=== PATIENT | female | born 1975 | race Caucasian/White ===

== ENCOUNTER → 2020-11-30 02:19 | Outpatient (CLI) | payer BC, SELFPAY ==
[2020-12-01 14:24] LABS: SARS-CoV-2 RNA PCR Negative
== END ==
PROVIDERS: Visit Provider Obstetrics & Gynecology
DX: Z01.812 Encounter for preprocedural laboratory examination (principal); Z20.822 Contact with and (suspected) exposure to COVID-19
CPT/HCPCS: C9803; U0003; U0005

== ENCOUNTER 2020-11-30 09:47 | Outpatient (CLI) | payer BC, SELFPAY ==
[2020-11-30 10:15] LABS: Basophils Absolute Auto 0.1 K/mm3 (0.0-0.1); Basophils Percent Auto 0.9 % (0.2-1.2); Eosinophils Absolute Auto 0.1 K/mm3 (0-0.3); Eosinophils Percent Auto 1.8 % (0-4.4); Hematocrit 44.2 % (37.0-47.0); Hemoglobin 14.4 g/dL (12.0-15.0); Immature Granulocyte Absolute 0.04 K/mm3 (0.00-0.031); Immature Granulocyte Percent A 0.5 % (0-0.5); Lymphocytes Percent Auto 17.7 % (18.3-44.2); Mean Corpuscular HGB Conc 32.6 g/dl (32-36); Mean Corpuscular Hemoglobin 28.9 pg (26-34); Mean Corpuscular Volume 88.8 fl (80-100); Mean Platelet Volume 9.2 fl (7.4-10.4); Monocytes Absolute Auto 0.5 K/mm3 (0.1-0.6); Monocytes Percent Auto 6.5 % (2.6-8.5); Neutrophils Absolute Auto 5.7 K/mm3 (1.3-6.7); Neutrophils Percent Auto 72.6 % (45.5-73.1); Platelet Count Result 361 k/mm3 (150-375); Red Blood Count 4.98 M/mm3 (4.2-5.4); Red Cell Distribution Width 13.3 % (11.5-14.5); White Blood Count 7.9 K/mm3 (4.5-10.0)
--- NOTE | 2020-11-30 11:30 | ECG_ITS ---
Measurements Intervals [place] Rate: 68 P: 19 CO: 123 QRS: -4 QRSD: 75 T: 12 QT: 372 QTc: 396 Interpretive Statements SINUS RHYTHM WITH SINUS ARRHYTHMIA LOW QRS VOLTAGE IN PRECORDIAL LEADS VOLTAGE CRITERIA FOR LVH BORDERLINE ECG Electronically Signed On 11-30-2020 10:21:54 CDT by Preet Easton D.O.
== END 2020-11-30 09:48 | disposition home or self-care (01) ==
PROVIDERS: PCP Internal Medicine; Visit Provider Obstetrics & Gynecology
DX: Z01.818 Encounter for other preprocedural examination (principal); N85.2 Hypertrophy of uterus; I10 Essential (primary) hypertension
CPT/HCPCS: 36415; 85025; 86850; 86900; 86901; 93005

== ENCOUNTER 2020-12-01 08:31 | Outpatient (CLI) | payer BC, SELFPAY ==
--- NOTE | ~2020-12-01 | MM_ITS ---
EXAMINATION: MM screening radha BI w junie HISTORY: Screening mammogram TECHNIQUE: Craniocaudal and mediolateral oblique 3-D tomosynthesis images were obtained and synthetic 2-D images were generated. CAD analysis was submitted and interpreted. COMPARISON: 09/14/2017 limited left breast ultrasound examination 09/14/2017 right screening and left diagnostic mammogram BREAST PARENCHYMAL COMPOSITION: There are scattered areas of fibroglandular density. FINDINGS: Left breast: 3.6 mm mass in the mid and lower inner left breast (craniocaudal Tomosynthesis image 31/80) 3.6 x 5.5 mm mass lower central left breast (craniocaudal Tomosynthesis image 30/80). Diagnostic left mammogram and left breast ultrasound examination are recommended. Right breast: There is no evidence of suspicious mass, calcification, or architectural distortion to suggest malignancy in either breast. There has been no suspicious interval change. IMPRESSION: 1. Left breast masses 2. Diagnostic left mammogram and left breast ultrasound examination are recommended BI-RADS Category 0: Incomplete: Needs additional imaging evaluation. Reviewed, dictated and finalized at location A. IMPRESSION: 1. Left breast masses 2. Diagnostic left mammogram and left breast ultrasound examination are recomme nded BI-RADS Category 0: Incomplete: Needs additional imaging evaluation.
== END 2020-12-01 08:32 | disposition home or self-care (01) ==
LOC: ANHIMG 08:34
PROVIDERS: PCP Internal Medicine; Visit Provider Obstetrics & Gynecology
DX: Z12.31 Encounter for screening mammogram for malignant neoplasm of breast (principal); R92.8 Other abnormal and inconclusive findings on diagnostic imaging of breast
CPT/HCPCS: 77063; 77067

== ENCOUNTER 2020-12-03 02:10 | Day surgery (SDC) | payer BC, SELFPAY ==
[2020-11-25 13:55] VITALS: BMI 40.4
--- NOTE | 2020-12-01 06:54 | PM.IMHP ---
H&P: HPI History of Present Illness Date/Time: 12/01/20 06:54 45-year-old 3 para 2 admitted for robotic total vaginal hysterectomy and bilateral salpingectomies. It appears to be fibroid uterus that is retroverted. She has had pain, discomfort and heavy bleeding. She had considered tubal ligation ablation however because of for pain she opted for definitive therapy. Risks and benefits reviewed including but not exclusive of , aspiration pneumonia, bleeding, transfusion, perforation injury to bowel, bladder, ureters, or other internal organs with need for open laparotomy. She had all questions answered. She received the ACOG handout entitled hysterectomy as well as the de Abel handout. She had all questions answered in asked to proceed Chief Complaint: pelvic pain and bleeding Review of Systems Review of Systems: All systems reviewed & are unremarkable except as noted in HPI and below [facility] Social History Social History Smoking status: Never smoker Alcohol intake: current Drinks per week: 2 Substance use: never Additional living arrangements comments: [facility]USB AND CHILDREN Spiritual care concerns: No Meds Home Medications and Allergies Home Medications Medication Instructions Recorded Confirmed Type lisinopril 20 mg PO QAM 11/25/20 11/25/20 History Allergies Allergy/AdvReac Type Severity Reaction Status Date / Time Penicillins Allergy Mild Hives Unverified 11/25/20 13:51 Exam Const: General: no acute distress Eyes: General: appearance normal, both eyes and all related structures Neck: Neck: supple and no JVD Thyroid: thyroid normal Resp: Effort & Inspection: normal respiratory effort Auscultation: clear to auscultation bilaterally Cardio: Rate: regular rate Rhythm: regular rhythm GI: Inspection: non-distended GI Palp: Yes Soft to palpation, No Tenderness to palpation present (GI) and No Guarding due to palpation present (GI) Auscultation: normal bowel sounds : External Female Exam: normal external appearance Speculum Exam - Vagina: normal appearance of the vagina Speculum Exam - Cervix: normal appearance of the cervix Bimanual exam- vagina & uterus: enlarged, fixed and Uterine tenderness Bimanual Exam- Adnexa, other: normal adnexae Skin: General skin exam: no rashes or lesions noted Extrem: General: normal to inspection and no edema Psych: Mental Status: mental status grossly normal Affect: normal affect Assessment and Plan Additional Plan impression: Enlarged uterus with pelvic pain and heavy bleeding Plan: Robotic total vaginal hysterectomy and bilateral salpingectomies
[2020-12-03] VITALS (11 sets, daily range): BP systolic 106–142; BP diastolic 57–101; PULSE 50–81; RESP 12–20; TEMP 35.8–37.6; O2SAT 98–100
[2020-12-03] MEDS: LACTATED RINGERS 1,000 ML 30 ML IV CONT (06:45)
[2020-12-03] MEDS: ACETAMINOPHEN 500 MG TABLET 1000 MG PO (06:50)
[2020-12-03] MEDS: KETOROLAC 15 MG/ML VIAL (*BKC) IV PUSH (06:50)
--- NOTE | 2020-12-03 06:54 | WPDHPUPDATE1 ---
History and Physical Update Update Date/Time: 12/03/20 06:54 History and Physical has been reviewed, including an updated exam of the patient. There are NO changes in the patient's condition. Risks, benefits, and alternatives have been discussed and questions answered. Patient agrees to proceed with procedure.
--- NOTE | 2020-12-03 07:03 | WPDANESEPPF ---
Anes - Initial Pre Proc Eval Procedure: Operation Date: 12/03/20 07:30 Proposed Procedures p Robotic Assisted Total Vaginal Hysterectomy, with Bilateral Salpingectomy - Bharat Hurtado MD Date/Time: 12/03/20 07:03 Surgeon: Bharat Hurtado MD Pre Op Diagnosis: enlarged uterus, pelvic pain, fibroid heavy bleedi Patient Data Age: 45 Gender: F Height: 1.63 m Weight: 107 kg Allergies Allergy/AdvReac Type Severity Reaction Status Date / Time Penicillins Allergy Mild Hives Unverified 12/03/20 06:42 Home Medications Medication Instructions Recorded Confirmed Type lisinopril 20 mg PO QAM 11/25/20 11/25/20 History hydrocodone-acetaminophen 1 tablet PO Q4H PRN #30 tablet 12/03/20 Rx Patient hx anesthesia problems: none Family hx anesthesia problems: none PMF Past Medical History Medical History (Updated 12/03/20 @ 07:04 by Bharat Moeller MD) HTN (hypertension) Morbid obesity Social History Social History Smoking status: Never smoker Alcohol intake: current Drinks per week: 2 Substance use: never Living arrangements: with family Additional living arrangements comments: [facility]USB AND CHILDREN Spiritual care concerns: No Anes - Eval Final PreProcedure Day of Procedure 12/03/20 07:03 Patient weight: morbidly obese Heart: regular rate and rhythm Lungs: clear to auscultation Airway: Mallampati scale class II Neurological: alert and oriented Last oral intake: >/= 8 hours ASA classification: III Emergent: no Anesthetic plan: proceed Anesthesia type and monitoring: general ETT and standard monitoring Informed Consent: The patient's anesthetic plan and its attendant risks and benefits were discussed with the patient/family/POA. Questions were solicited and answers provided to the satisfaction of the patient/family/POA.
[2020-12-03] MEDS: ceFAZolin 2 GM/D5W 50 ML 2 GM/50 ML BAG IVPB (07:15)
--- NOTE | 2020-12-03 08:38 | W.PM.PROC2 ---
Procedure Note - Detailed Date of Procedure 12/03/20 Pre-op Diagnosis enlarged uterus, pelvic pain, fibroid heavy bleedi Post-op Diagnosis same Procedure Performed Robotic total vaginal hysterectomy and bilateral salpingectomies Surgeon Bharat Hurtado MD Anesthesia general Indications This is a patient with excessive heavy bleeding with an enlarged uterus pelvic pain Findings And enlarged uterus. Normal-appearing tubes and ovaries bilaterally. Description of Procedure Patient was prepped draped in the normal sterile fashion placed in dorsal lithotomy position. Under excellent general endotracheal anesthesia weighted speculum was placed in the posterior fornix of vagina. Anterior lip of the cervix was grasped with a single-tooth tenaculum and the uterus sounded to 9cm. Serial dilatation with fragmented dilators performed followed by passage of the 8. MARIA GUADALUPE and the 3. 0.5 cold cup. A 16 Citizen [place] catheter was placed in the bladder which drained clear fluid. The weighted speculum was removed as was the single-tooth tenaculum. The gloves were changed. A supraumbilical incision made the Veress needle passed in the abdomen. The abdomen filled with CO2 gas [id number]. The 8mm trocar advanced in the abdomen. The downside visualizing the injury seen. Patient placed in Trendelenburg and right and left lateral quadrant incisions made. The 8mm trocars advanced under direct visualization assuring no injury. A right upper quadrant incision made and the 10mm trocar advanced under direct visualization assuring no injury. Robot was docked Attention was turned to the marriage and family counselor. The left round ligament was grasped, burned, cut. A bladder flap was formed by sharply dissecting the peritoneum and reflecting the bladder caudally away from the cervix and uterus to the opposite round ligament was clamped, burned, cut. The ovaries appeared within normal limits and the tubes were sharply dissected using monopolar cautery and the left attached at the origin of the uterus bilaterally. The left utero-ovarian ligament was skeletonized to conserve left ovary. This was clamped, burned, cut and brought to the level of previously cut round ligament conserving the right ovary, the right utero-ovarian ligament was clamped, burned, cut and brought to the level of previous cut round ligament. Cardinal and broad ligaments on the left were serially skeletonized clamped, burned, cut and brought down the level of the uterine vessels on the left. The uterine vessels were large and tortuous. These were individually clamped, burned, cut. In like fashion the cardinal broad ligaments on the right were serially clamped, burned, cut and brought down the lateral edge of the cervix and uterus. The uterine vessels on the right were large and tortuous and individually clamped, burned, cut. Excellent blanching the uterus was seen. A colpotomy incision was made and the cervix uterus and tubes removed through the vagina. Blood loss estimated 100cc the vagina was closed with continuous running 0V lock from lateral edge to lateral edge dissected midline. Irrigation undertaken to clear and the raw surface areas regular with [place] term. Hemostasis was assured in the robot was undocked. Gas removed from the abdomen. In the trocars removed the incisions closed with 4 Monocryl and glue. The patient was awakened. She went to recovery in satisfactory condition. All sponge, needle, instrument counts were correct. There were no immediate complications Estimated Blood Loss 100 Drains No Packing No Pathology yes Complications No immediate complications Condition stable Disposition floor
[2020-12-03] MEDS: fentaNYL CITRATE INJ (*CRX) 100 MCG/2 ML VIAL 25 MCG IV PUSH ×2 (09:21→09:23)
[2020-12-03] MEDS: SIMETHICONE 80 MG TAB.CHEW PO ×2 (10:44→17:52)
[2020-12-03] MEDS: KETOROLAC 30 MG/ML VIAL (*BKC) IV PUSH ×2 (10:44→19:22)
[2020-12-03] MEDS: DEXTROSE 5%/LACTATED RINGERS 1,000 ML 125 ML IV CONT (10:45)
[2020-12-03] MEDS: ENOXAPARIN 40 MG/0.4 ML SYRINGE SUB-Q (10:46)
[2020-12-03] MEDS: HYDROcodone/acetaminophen (*CRX) 5-325 MG TABLET 1 TAB PO ×2 (17:52→22:15)
[2020-12-03] MEDS: DOCUSATE SODIUM 100 MG CAPSULE PO (17:52)
[2020-12-04 05:00] VITALS: BP 114/69; PULSE 55; RESP 16; TEMP 36.8; O2SAT 98
[2020-12-04] MEDS: HYDROcodone/acetaminophen (*CRX) 5-325 MG TABLET 1 TAB PO ×2 (05:10→09:24)
[2020-12-04] MEDS: KETOROLAC 30 MG/ML VIAL (*BKC) IV PUSH (05:11)
[2020-12-04 05:52] LABS: Basophils Percent Auto 0.4 % (0.2-1.2); Eosinophils Absolute Auto 0.1 K/mm3 (0-0.3); Eosinophils Percent Auto 1.1 % (0-4.4); Hemoglobin 12.5 g/dL (12.0-15.0); Immature Granulocyte Absolute 0.05 K/mm3 (0.00-0.031); Immature Granulocyte Percent A 0.5 % (0-0.5); Lymphocytes Absolute Auto 3.06 K/mm3 (0.9-3.2); Lymphocytes Percent Auto 27.6 % (18.3-44.2); Mean Corpuscular HGB Conc 32.1 g/dl (32-36); Mean Corpuscular Hemoglobin 28.5 pg (26-34); Mean Corpuscular Volume 88.8 fl (80-100); Mean Platelet Volume 9.4 fl (7.4-10.4); Monocytes Absolute Auto 0.9 K/mm3 (0.1-0.6); Monocytes Percent Auto 7.9 % (2.6-8.5); Neutrophils Percent Auto 62.5 % (45.5-73.1); Platelet Count Result 352 k/mm3 (150-375); Red Blood Count 4.39 M/mm3 (4.2-5.4); Red Cell Distribution Width 13.6 % (11.5-14.5); White Blood Count 11.1 K/mm3 (4.5-10.0)
[2020-12-04 07:35] VITALS: BP 129/80; PULSE 62; RESP 20; TEMP 37.1
[2020-12-04] MEDS: SIMETHICONE 80 MG TAB.CHEW PO (07:43)
--- NOTE | 2020-12-04 08:01 | PM.OBPNVD ---
OB - PN: Subj Subjective Date/time seen: 12/04/20 08:01 Patient comments: no complaints and pain well controlled OB - PN: Obj Data Labs CBC & Chem 7: 12/04/20 05:27 Labs: Laboratory Results - last 24 hr 12/04/20 05:27 WBC 11.1 H RBC 4.39 Hgb 12.5 Hct 39.0 MCV 88.8 MCH 28.5 MCHC 32.1 RDW 13.6 Plt Count 352 MPV 9.4 Immature Gran % (Auto) 0.5 Neut % (Auto) 62.5 Lymph % (Auto) 27.6 [place] % (Auto) 7.9 Eos % (Auto) 1.1 Baso % (Auto) 0.4 Lymph # (Auto) 3.06 [place] # (Auto) 0.9 H Eos # (Auto) 0.1 Baso # (Auto) 0.0 Abs Immat Gran (auto) 0.05 H Absolute Neuts (auto) 7.0 H Absolute Nucleated RBC 0.0 Nucleated RBC % 0.0 OB - PN A/P Plan day: 1 Plan: routine care, discharge home and follow up 6 weeks (2 weeks) Time Spent With Patient Time: Total time spent is greater than 50% in coordination of care (as documented) at patient's floor/unit and/or counseling patient: Time with patient: less than 15 minutes Review of Systems Review of Systems: All systems reviewed & are unremarkable except as noted in HPI and below Exam Const: General: no acute distress Eyes: General: appearance normal, both eyes and all related structures Neck: Neck: supple and no JVD Thyroid: thyroid normal Resp: Effort & Inspection: normal respiratory effort Auscultation: clear to auscultation bilaterally Cardio: Rate: regular rate Rhythm: regular rhythm GI: Inspection: non-distended GI Palp: Yes Soft to palpation, No Tenderness to palpation present (GI) and No Guarding due to palpation present (GI) Auscultation: normal bowel sounds : General: Yes bladder normal to palpation External Female Exam: normal external appearance Speculum Exam - Vagina: normal vaginal discharge and No vaginal bleeding Speculum Exam - Cervix: nontender Bimanual exam- vagina & uterus: bladder normal to palpation and No Cervical tenderness present OB/external & speculum: No vaginal bleeding Skin: General skin exam: no rashes or lesions noted Extrem: General: normal to inspection and no edema Psych: Mental Status: mental status grossly normal Affect: normal affect
[2020-12-04] MEDS: DOCUSATE SODIUM 100 MG CAPSULE PO (09:24)
== END 2020-12-04 09:57 | disposition home or self-care (01) ==
LOC: ANHSURGERY 06:14 → ANHOB2 09:48
PROVIDERS: PCP Internal Medicine; Visit Provider Obstetrics & Gynecology
PROC: (CPT 58552; principal; 2020-12-03 07:30)
DX: R10.2 Pelvic and perineal pain (principal); N80.0 Endometriosis of uterus; N93.9 Abnormal uterine and vaginal bleeding, unspecified; I10 Essential (primary) hypertension; E66.01 Morbid (severe) obesity due to excess calories; Z68.41 Body mass index [BMI] 40.0-44.9, adult
CPT/HCPCS: 58552; S2900; 36415; 85025; 88307; 99199; A9270; J0690; J1100; J1170; J1200; J1650; J1885; J2250; J2405; J2704; J2710; J3010; J7030; J7120; J7121

== ENCOUNTER 2021-01-03 13:49 | Outpatient (CLI) | payer BC, SELFPAY ==
--- NOTE | ~2021-01-03 | MMUS_ITS ---
EXAMINATION: MM diagnostic mammo unilat LT, US breast LT complete HISTORY: Left breast masses reported on 12/01/2020 screening mammogram TECHNIQUE: Additional 3-D Tomosynthesis images of the left breast were performed and synthetic 2-D im ages were generated. CAD analysis was submitted and interpreted. High resolution complete left breast ultrasound was performed. COMPARISON: 09/14/2017 bilateral mammogram and limited left breast ultrasound 12/01/2020 bilateral digital screening mammogram FINDINGS: MAMMOGRAPHIC FINDINGS: There is a circumscribed subareolar 6 x 9 mm opacity (ML Tomosynthesis image 42/89). This is possibly present and stable on 09/14/2017 MLO view. No suspicious mass or architectural distortion is noted otherwise. ULTRASOUND: A 5.4 x 9 mm circumscribed hypoechoic solid lesion is noted in the left subareolar area. There is no internal vascularity. This area was not scanned on the prior limited left breast ultrasound examinati on of 09/14/2017. IMPRESSION: 1. Probable benign finding 2. 6 month diagnostic left mammogram and targeted left breast ultrasound examination follow-up is rec ommended BI-RADS category 3, probably benign findings. Reviewed, dictated and finalized at location A. IMPRESSION: 1. Probable benign finding 2. 6 month diagnostic left mammogram and targeted left breast ultrasound examin ation follow-up is recommended BI-RADS category 3, probably benign findings.
== END 2021-01-03 13:50 | disposition home or self-care (01) ==
LOC: ANHIMG 13:51
PROVIDERS: PCP Internal Medicine; Visit Provider Obstetrics & Gynecology
DX: R92.8 Other abnormal and inconclusive findings on diagnostic imaging of breast (principal)
CPT/HCPCS: 76641; 77065

== ENCOUNTER → 2021-07-07 07:54 | Outpatient (CLI) | payer BC, SELFPAY ==
--- NOTE | ~2021-07-07 | MMUS_ITS ---
EXAMINATION: MM diagnostic radha LT w junie, US breast LT limited HISTORY: Six-month follow-up for probably benign left breast mass TECHNIQUE: Craniocaudal, mediolateral, and mediolateral oblique 3-D tomosynthesis images of the left breast were performed and synthetic 2-D images were generated. CAD analysis was submitted and interpr eted. High resolution limited left breast ultrasound was performed. COMPARISON: 01/03/2021, 12/01/2020, 09/14/2017 BREAST PARENCHYMAL COMPOSITION: There are scattered areas of fibroglandular density. FINDINGS: MAMMOGRAPHIC FINDINGS: There is no evidence of suspicious mass, calcification, or architectural distortion to suggest malig dejuan. There has been no suspicious interval change. The previously described mammographically detect ed masses are no longer evident. ULTRASOUND: There is a stable 8 mm x 6 mm oval, circumscribed, parallel, hypoechoic mass with no posterior featur es or internal vascularity near the nipple there has been no suspicious interval change. IMPRESSION: 1. Stable, probably benign left breast mass. 2. Recommend 6 month follow-up diagnostic mammogram and ultrasound. BI-RADS category 3, probably benign findings. Reviewed, dictated and finalized at location A. [employer] IMPRESSION: 1. Stable, probably benign left breast mass. 2. Recommend 6 month follow-up diagnostic mammogram and ultrasound. BI-RADS category 3, probably benign findings.
== END ==
PROVIDERS: Visit Provider Obstetrics & Gynecology
DX: R92.8 Other abnormal and inconclusive findings on diagnostic imaging of breast (principal)
CPT/HCPCS: 76642; 77061; 77065; G0279

== ENCOUNTER → 2021-12-23 08:44 | Outpatient (CLI) | payer OTHER, SELFPAY ==
--- NOTE | ~2021-12-23 | MMUS_ITS ---
EXAMINATION: MM diagnostic radha BI w junie, US breast LT limited HISTORY: Six-month follow-up for probably benign left breast mass TECHNIQUE: Craniocaudal, mediolateral, and mediolateral oblique 3-D tomosynthesis images of the cassy ts were performed and synthetic 2-D images were generated. CAD analysis was submitted and interpreted . High resolution limited left breast ultrasound was performed. COMPARISON: 07/07/2021, 01/03/2021, 12/01/2020, 09/14/2017 BREAST PARENCHYMAL COMPOSITION: There are scattered areas of fibroglandular density. FINDINGS: MAMMOGRAPHIC FINDINGS: There is no suspicious mass, calcification, or architectural distortion in either breast to suggest malignancy. There has been no suspicious interval change. ULTRASOUND: There is a stable 8 mm x 6 mm oval, circumscribed, parallel, hypoechoic mass with no posterior featur es or internal vascularity near the nipple. There has been no suspicious interval change. IMPRESSION: 1. Stable, probably benign left breast mass. 2. Given one year of interval stability, recommend 12 month followup diagnostic mammogram and ultraso und BI-RADS category 3, probably benign findings. Reviewed, dictated and finalized at location A. IMPRESSION: 1. Stable, probably benign left breast mass. 2. Given one year of interval stability, recommend 12 month followup diagnostic mammogram and ultrasound BI-RADS category 3, probably benign findings.
== END ==
PROVIDERS: PCP Internal Medicine; Visit Provider Obstetrics & Gynecology
DX: R92.8 Other abnormal and inconclusive findings on diagnostic imaging of breast (principal)
CPT/HCPCS: 76642; 77062; 77066; G0279

== ENCOUNTER 2023-09-06 08:58 | Outpatient (CLI) | payer BC, SELFPAY ==
--- NOTE | ~2023-09-06 | MMUS_ITS ---
EXAMINATION: MM diagnostic radha BI w junie, US breast LT limited HISTORY: 12 month follow-up of stable probably benign left breast mass near nipple TECHNIQUE: ML, MLO and CC 3-D tomosynthesis images of both breasts were performed and synthetic 2-D i mages were generated. CAD analysis was submitted and interpreted. High resolution subareolar left samy ast ultrasound was performed. COMPARISON: 12/23/2021 bilateral diagnostic mammography and limited left breast ultrasound 07/07/2021 diagnostic left mammogram and limited left breast ultrasound 01/03/2021 diagnostic left mammogram and complete left breast ultrasound 11/11/2020 bilateral screening mammogram BREAST PARENCHYMAL COMPOSITION: There are scattered areas of fibroglandular density. FINDINGS: MAMMOGRAPHIC FINDINGS: No suspicious mass or architectural distortion, malignant calcification, skin thickening or retractio n or significant new or developing density is detected. ULTRASOUND: Approximately 6.9 x 8.4 mm subareolar circumscribed soft tissue mass is noted, without suspicious sha dowing is again noted in the subareolar area. IMPRESSION: 1. Benign finding 2. Routine annual mammographic screening is recommended BI-RADS Category 2: Benign finding(s). Reviewed, dictated and finalized at location A. IMPRESSION: 1. Benign finding 2. Routine annual mammographic screening is recommended BI-RADS Category 2: Benign finding(s).
== END 2023-09-06 08:59 | disposition home or self-care (01) ==
LOC: CHSIMG 09:01
PROVIDERS: PCP Internal Medicine; Visit Provider Obstetrics & Gynecology
DX: R92.8 Other abnormal and inconclusive findings on diagnostic imaging of breast (principal)
CPT/HCPCS: 76642; 77062; 77066; G0279

== ENCOUNTER 2024-03-22 08:28 | Outpatient (CLI) | payer BC, SELFPAY ==
[2024-03-22 09:09] LABS: Add Urine Microscopic? YES; Appearance Urine Sl Cloudy (Clear); Basophils Absolute Auto 0.07 K/mm3 (0.00-0.10); Basophils Percent Auto 0.7 % (0.0-1.0); Bilirubin Urine Negative (Negative); Blood Urine Negative (Negative); Color Urine Yellow (Yellow); Eosinophils Absolute Auto 0.22 K/mm3 (0.02-0.50); Eosinophils Percent Auto 2.4 % (1.0-6.0); Glucose Urine UA Negative (Negative); Hematocrit 45.5 % (35.0-49.0); Hemoglobin 15.2 g/dL (12.0-15.0); Immature Granulocyte Absolute 0.04 K/mm3 (0.00-0.00); Immature Granulocyte Percent A 0.4 % (0.0-0.0); Ketones Urine Negative (Negative); Leukocyte Esterase Ur Negative (Negative); Lymphocytes Absolute Auto 1.99 K/mm3 (1.10-4.50); Lymphocytes Percent Auto 21.3 % (18.0-42.0); Mean Corpuscular HGB Conc 33.4 g/dL (32-36); Mean Corpuscular Hemoglobin 29.3 pg (27.0-31.0); Mean Corpuscular Volume 87.8 fL (78.0-102.0); Mean Platelet Volume 8.9 fl (9.2-11.8); Monocytes Absolute Auto 0.57 K/mm3 (0.10-0.90); Monocytes Percent Auto 6.1 % (2.0-11.0); Neutrophils Absolute Auto 6.46 K/mm3 (1.70-7.20); Neutrophils Percent Auto 69.1 % (50.0-70.0); Nitrate Urine Negative (Negative); Platelet Count Result 410 K/mm3 (150-420); Protein Urine Negative (Negative); Red Blood Count 5.18 M/mm3 (4.20-5.40); Red Cell Distribution Width 13.3 % (11.6-14.4); Specific Grav Ur >= 1.030 (1.010-1.020); Urobilinogen Urine 0.2 mg/dL (0.2-1.0); White Blood Count 9.4 K/mm3 (4.8-10.8)
[2024-03-22 09:12] LABS: RBC Urine None seen /hpf (0-2); Squamous Epithelial Cell Urine Moderate /hpf (Few); WBC Urine None seen /hpf (0-3)
[2024-03-22 09:13] LABS: Bacteria Urine Trace /hpf
[2024-03-22 09:59] LABS: Alanine Aminotransferase 16 U/L (14-59); Albumin Level 3.6 g/dL (3.4-5.0); Alkaline Phosphatase 98 U/L (46-116); Anion Gap 6 mmol/L (4-12); Bilirubin,Total 0.4 mg/dL (0.00-1.00); Blood Urea Nitrogen 15 mg/dL (7-18); Calcium 9.3 mg/dL (8.5-10.1); Carbon Dioxide 28 mmol/L (21-32); Chloride 105 mmol/L (98-108); Cholesterol 275 mg/dL (0-200); Estimated Glomerular Filt Rate > 60; Glucose 104 mg/dL (70-99); HDL Direct 47 mg/dL (40-60); LDL Cholesterol Calculated 195 mg/dL (<130); Osmolality Calculated 288 mOsm/kg (285-295); Potassium 4.4 mmol/L (3.5-5.1); Sodium 139 mmol/L (136-145); Thyroid Stimulating Hormone 1.24 uIU/mL (0.36-3.74); Total Protein 7.1 g/dL (6.4-8.2); Triglycerides 165 mg/dL (0-150)
[2024-03-22 10:14] LABS: Aspartate Amino Transferase 11 U/L (15-37)
[2024-03-24 10:44] LABS: Hemoglobin A1C 5.7 % (<5.7)
[2024-03-25 07:28] LABS: FSH 4.7 mIU/mL; LH 1.9 mIU/mL
[2024-03-27 10:08] LABS: Tissue Transglutaminase IgA Ab <1.0 U/mL; Tissue Transglutaminase IgG Ab <1.0 U/mL
[2024-03-29 20:34] LABS: Estradiol, Ultrasensitive 189 pg/mL
[2024-03-30 22:38] LABS: ANCA Screen Negative (Negative)
[2024-03-31 13:08] LABS: S cerevisiae Ab (IgA) 8.8 U (<=20.0); S cerevisiae Ab (IgG) 6.1 U (<=20.0)
[2024-04-02 09:53] LABS: Myeloperoxidase Ab <1.0 AI (<1.0); Proteinase-3 Ab <1.0 AI (<1.0)
== END 2024-03-22 08:29 | disposition home or self-care (01) ==
LOC: CHSLAB 08:31
PROVIDERS: PCP Internal Medicine; Visit Provider Internal Medicine
DX: Z00.00 Encounter for general adult medical examination without abnormal findings (principal); R19.7 Diarrhea, unspecified; N95.1 Menopausal and female climacteric states; R23.2 Flushing
CPT/HCPCS: 36415; 80053; 80061; 81001; 82670; 83001; 83002; 83036; 83516; 84443; 85025; 86036; 86671

== ENCOUNTER 2024-05-01 08:57 | Outpatient (CLI) | payer BC, SELFPAY ==
[2024-05-01 10:24] LABS: Toxigenic C. Diff NEGATIVE (NEGATIVE)
[2024-05-05 14:57] LABS: H pylori Ag Stool RESULT: Not Detected
== END 2024-05-01 08:58 | disposition home or self-care (01) ==
PROVIDERS: PCP Internal Medicine; Visit Provider Nurse Practitioner Family
DX: K21.9 Gastro-esophageal reflux disease without esophagitis (principal); R15.2 Fecal urgency; R15.9 Full incontinence of feces; R19.7 Diarrhea, unspecified; R10.13 Epigastric pain
CPT/HCPCS: 82653; 83993; 87045; 87338; 87427; 87449; 87493

== ENCOUNTER 2024-05-29 00:25 | Day surgery (SDC) | payer BC, SELFPAY ==
[2024-05-26 15:11] VITALS: BMI 39.1
[2024-05-29 06:58] VITALS: BP 173/109; PULSE 89; RESP 20; TEMP 35.6; O2SAT 100; BMI 39.1
[2024-05-29] MEDS: LACTATED RINGERS 1,000 ML 150 ML IV CONT (07:22)
--- NOTE | 2024-05-29 07:28 | SUR.PREOP ---
Addressed with that patient had cookie, he will proceed with procedure. Also, addressed with of patients high blood pressure. Patient stated didn't take blood pressure medication and is anxious , he was okay with moving forward.
--- NOTE | 2024-05-29 07:33 | P.PNAN_ITS ---
Anes - Initial Pre Proc Eval Procedure: Operation Date: 05/29/24 08:00 Proposed Procedures p Esophagogastroduodenoscopy & Colonoscopy - Madhav Fonseca MD Date/Time: 05/29/24 07:33 Surgeon: Madhav Fonseca MD Pre Op Diagnosis: GERD/ Fecal Incontinence & urgency Patient Data Age: 48 Gender: F Height: 1.65 m Weight: 106.6 kg Last Vital Signs Temp 35.6 C L 05/29/24 06:58 Pulse 89 05/29/24 06:58 Resp 20 05/29/24 06:58 BP 173/109 H 05/29/24 06:58 Pulse Ox 100 05/29/24 06:58 O2 Del Method Room Air 05/29/24 06:58 Allergies Allergy/AdvReac Type Severity Reaction Status Date / Time Penicillins Allergy Mild Hives Verified 05/29/24 07:04 Home Medications ?Medication ?Instructions ?Recorded ?Confirmed ?Type lisinopril 20 mg tablet 20 mg PO QAM 11/25/20 05/29/24 History famotidine 40 mg tablet 40 mg PO BID #60 tabs 04/17/24 05/29/24 Rx fluoxetine 10 mg capsule 10 mg PO DAILY 04/17/24 05/29/24 History nortriptyline 10 mg capsule 10 mg PO DAILY 04/17/24 05/29/24 History omeprazole 40 mg capsule,delayed 40 mg PO DAILY #30 caps 04/17/24 05/29/24 Rx release dicyclomine 10 mg capsule 10 mg PO QID PRN abdominal pain 05/26/24 05/29/24 History Patient hx anesthesia problems: none Family hx anesthesia problems: none Results Review: All pre-operative results and documents have been reviewed as part of the pre- operative evaluation. [facility] Past Medical History Medical History HTN (hypertension) Morbid obesity Social History Social History Smoking status: Never smoker Alcohol intake: current Drinks per week: 2 Substance use: never Substance use type: does not use Living arrangements: with family Additional living arrangements comments: HUSB AND CHILDREN Spiritual care concerns: No Anes - Eval Final PreProcedure Day of Procedure 05/29/24 07:33 Patient weight: morbidly obese Heart: regular rate and rhythm Lungs: clear to auscultation Airway: Mallampati scale class II Neurological: alert and oriented Last oral intake: >/= 8 hours ASA classification: III Emergent: no Anesthetic plan: proceed Anesthesia type and monitoring: general GIVS and standard monitoring Results Review: All pre-operative results and documents have been reviewed as part of the pre- operative evaluation. Informed Consent: The patient's anesthetic plan and its attendant risks and benefits were discussed with the patient/family/POA. Questions were solicited and answers provided to the satisfaction of the patient/family/POA.
--- NOTE | 2024-05-29 07:36 | P.PNAN_ITS ---
Anes - Initial Pre Proc Eval Procedure: Operation Date: 05/29/24 08:00 Proposed Procedures p Esophagogastroduodenoscopy & Colonoscopy - Madhav Fonseca MD Date/Time: 05/29/24 07:36 Surgeon: Madhav Fonseca MD Pre Op Diagnosis: GERD/ Fecal Incontinence & urgency Patient Data Age: 48 Gender: F Height: 1.65 m Weight: 106.6 kg Last Vital Signs Temp 35.6 C L 05/29/24 06:58 Pulse 89 05/29/24 06:58 Resp 20 05/29/24 06:58 BP 173/109 H 05/29/24 06:58 Pulse Ox 100 05/29/24 06:58 O2 Del Method Room Air 05/29/24 06:58 Allergies Allergy/AdvReac Type Severity Reaction Status Date / Time Penicillins Allergy Mild Hives Verified 05/29/24 07:04 Home Medications ?Medication ?Instructions ?Recorded ?Confirmed ?Type lisinopril 20 mg tablet 20 mg PO QAM 11/25/20 05/29/24 History famotidine 40 mg tablet 40 mg PO BID #60 tabs 04/17/24 05/29/24 Rx fluoxetine 10 mg capsule 10 mg PO DAILY 04/17/24 05/29/24 History nortriptyline 10 mg capsule 10 mg PO DAILY 04/17/24 05/29/24 History omeprazole 40 mg capsule,delayed 40 mg PO DAILY #30 caps 04/17/24 05/29/24 Rx release dicyclomine 10 mg capsule 10 mg PO QID PRN abdominal pain 05/26/24 05/29/24 History Patient hx anesthesia problems: none Family hx anesthesia problems: none Results Review: All pre-operative results and documents have been reviewed as part of the pre- operative evaluation. [facility] Past Medical History Medical History HTN (hypertension) Morbid obesity Surgical History Surgical History (Updated 05/29/24 @ 07:36 by Bharat Moeller MD) H/O: hysterectomy Social History Social History Smoking status: Never smoker Alcohol intake: current Drinks per week: 2 Substance use: never Substance use type: does not use Living arrangements: with family Additional living arrangements comments: HUSB AND CHILDREN Spiritual care concerns: No Anes - Eval Final PreProcedure Day of Procedure 05/29/24 07:36 Patient weight: morbidly obese Heart: regular rate and rhythm Lungs: clear to auscultation Airway: Mallampati scale class II Neurological: alert and oriented Last oral intake: >/= 8 hours ASA classification: III Emergent: no Anesthetic plan: proceed Anesthesia type and monitoring: general GIVS and standard monitoring Results Review: All pre-operative results and documents have been reviewed as part of the pre- operative evaluation. Informed Consent: The patient's anesthetic plan and its attendant risks and benefits were discussed with the patient/family/POA. Questions were solicited and answers provided to the satisfaction of the patient/family/POA.
--- NOTE | 2024-05-29 08:03 | PM.IMHP ---
H&P: HPI History of Present Illness Date/Time: 05/29/24 08:03 Chief Complaint: GERD-chronic diarrhea. Narrative: The patient has been complaining of heartburn for several years, currently controlled with omeprazole and famotidine, which she takes at bedtime. She denies dysphagia, nausea, vomiting or unintentional weight loss. In addition, she has been complaining of diarrhea most of the times, frequently after she eats any meal. Diarrhea is not associated with blood, tenesmus, mucous but is associated with crampy lower abdominal pain almost half of the times, which resolved with defecation. She is referred for EGD and colonoscopy. Review of Systems Review of Systems: All systems reviewed & are unremarkable except as noted in HPI and below PMFSH Past Medical History Medical History HTN (hypertension) Morbid obesity Surgical History Surgical History (Updated 05/29/24 @ 07:36 by Bharat Moeller MD) H/O: hysterectomy Social History Social History Smoking status: Never smoker Alcohol intake: current Drinks per week: 2 Substance use: never Substance use type: does not use Living arrangements: with family Additional living arrangements comments: [facility] CHILDREN Spiritual care concerns: No Meds Home Medications and Allergies Home Medications ?Medication ?Instructions ?Recorded ?Confirmed ?Type lisinopril 20 mg tablet 20 mg PO QAM 11/25/20 05/29/24 History famotidine 40 mg tablet 40 mg PO BID #60 tabs 04/17/24 05/29/24 Rx fluoxetine 10 mg capsule 10 mg PO DAILY 04/17/24 05/29/24 History nortriptyline 10 mg capsule 10 mg PO DAILY 04/17/24 05/29/24 History omeprazole 40 mg capsule,delayed 40 mg PO DAILY #30 caps 04/17/24 05/29/24 Rx release dicyclomine 10 mg capsule 10 mg PO QID PRN abdominal pain 05/26/24 05/29/24 History Allergies Allergy/AdvReac Type Severity Reaction Status Date / Time Penicillins Allergy Mild Hives Verified 05/29/24 07:04 Vital Signs Vital Signs - 24 hr 05/29/24 06:58 Temperature 96.0 F L Pulse Rate 89 Respiratory Rate 20 Blood Pressure 173/109 H Pulse Oximetry 100 Oxygen Delivery Room Air Exam Const: General: cooperative and healthy appearing Resp: Effort & Inspection: normal respiratory effort and able to speak in complete sentences Auscultation: clear to auscultation bilaterally Cardio: Rate: regular rate Rhythm: regular rhythm GI: Inspection: normal to inspection GI Palp: No No hepatosplenomegaly present Auscultation: normal bowel sounds Rectal Exam: deferred Skin: General skin exam: normal color Psych: Appearance: grossly normal Mental Status: mental status grossly normal Assessment and Plan Assessment and plan (1) Diarrhea: Qualifiers: Diarrhea type: unspecified type Qualified Code(s): R19.7 - Diarrhea, unspecified Code(s): R19.7 - Diarrhea, unspecified Status: Acute Assessment and Plan: Differential diagnosis includes irritable bowel syndrome and microscopic colitis, less likely inflammatory bowel disease. Colonoscopy is indicated and will perform mucosal biopsies to rule out microscopic colitis. In addition, will take esophageal biopsies during EGD to rule out eosinophilic esophagitis. The patient is deemed a good candidate for the procedures. Consent signed. Will proceed. (2) GERD (gastroesophageal reflux disease): Qualifiers: Esophagitis presence: esophagitis presence not specified Qualified Code(s): K21.9 - Gastro-esophageal reflux disease without esophagitis Code(s): K21.9 - Gastro-esophageal reflux disease without esophagitis Status: Acute
--- NOTE | 2024-05-29 08:33 | SUR.OPER ---
EGD END 828 COLONOSCOPY START 833
[2024-05-29 08:50] VITALS: BP 117/69; PULSE 74; RESP 21; O2SAT 100
[2024-05-29 09:00] VITALS: BP 121/82; PULSE 69; RESP 19; O2SAT 100
[2024-05-29 09:10] VITALS: BP 138/91; PULSE 63; RESP 15; O2SAT 100
== END 2024-05-29 09:25 | disposition home or self-care (01) ==
PROVIDERS: PCP Internal Medicine; Referring Provider Nurse Practitioner Family; Visit Provider Internal Medicine Gastroenterology
PROC: 0DJ08ZZ Inspection of Upper Intestinal Tract, Via Natural or Artificial Opening Endoscopic (ICD-10-PCS; CPT 43235; principal; 2024-05-29 08:00)
DX: R19.7 Diarrhea, unspecified (principal); K21.00 Gastro-esophageal reflux disease with esophagitis, without bleeding; K29.30 Chronic superficial gastritis without bleeding; K31.7 Polyp of stomach and duodenum; I10 Essential (primary) hypertension; E66.01 Morbid (severe) obesity due to excess calories; Z68.39 Body mass index [BMI] 39.0-39.9, adult
CPT/HCPCS: 45380; 43239; 88305; J2003; J2704; J7120

== ENCOUNTER 2024-09-10 07:28 | Outpatient (CLI) | payer BC, SELFPAY ==
[2024-09-10 08:40] LABS: Cholesterol 263 mg/dL (0-200); Glucose 97 mg/dL (70-99); HDL Direct 48 mg/dL (40-60); LDL Cholesterol Calculated 168 mg/dL (<130); Triglycerides 233 mg/dL (0-150)
== END 2024-09-10 07:29 | disposition home or self-care (01) ==
LOC: CHSLAB 07:29
PROVIDERS: PCP Internal Medicine; Visit Provider Internal Medicine
DX: R73.09 Other abnormal glucose (principal)
CPT/HCPCS: 36415; 80061; 82947